=== PATIENT | female | born 1985 | race Caucasian/White ===

== ENCOUNTER 2017-01-24 17:16 | Inpatient (IN) | payer MEDICAID, OTHER ==
[~2017-01-24] VITALS: Ht 157.5 cm; Wt 46.8 kg
[~2017-01-24 17:16] MED LIST: ADDE10 PO; LEVO25TA9 PO; SERT100T12 PO; VITA1CAP PO
[2017-01-24 18:51] VITALS: BP 132/82
[2017-01-24] MEDS ORDERED: LORazepam 2 MG TABLET PO PRN (19:00)
[2017-01-24] MEDS ORDERED: ZOLPIDEM TARTRATE 10 MG TABLET PO PRN (19:00)
[2017-01-24] MEDS ORDERED: HALOPERIDOL 5 MG TABLET PO PRN (19:00)
[2017-01-24 20:23] VITALS: BP 128/73
[2017-01-24] MEDS ORDERED: INFLUENZA VIRUS VACCINE QVS 2016-17 (3YR+)/PF 60 MCG/0.5 ML SYRINGE IM ONE (20:45)
[2017-01-25 02:16] VITALS: BP 127/68
[2017-01-25] MEDS: LEVOTHYROXINE SODIUM 25 MCG TABLET PO SCH (06:21)
[2017-01-25] MEDS ORDERED: IBUPROFEN 400 MG TABLET PO PRN (07:30)
[2017-01-25] MEDS ORDERED: ACETAMINOPHEN 325 MG TABLET PO PRN (07:30)
[2017-01-25 08:59] VITALS: BP 113/91
[2017-01-25] MEDS: VITAMIN B COMPLEX ER TABLET PO SCH (12:44)
[2017-01-25 16:25] VITALS: BP 119/67
[2017-01-26 01:44] VITALS: BP 124/88
[2017-01-26] MEDS: LEVOTHYROXINE SODIUM 25 MCG TABLET PO SCH (06:26)
[2017-01-26] MEDS ORDERED: LEVOTHYROXINE SODIUM 25 MCG TABLET PO SCH (06:30)
[2017-01-26 08:42] VITALS: BP 116/74
[2017-01-26] MEDS: VITAMIN B COMPLEX ER TABLET PO SCH (08:43)
[2017-01-26] MEDS ORDERED: OLANZapine 5 MG TABLET PO SCH (09:00)
[2017-01-26 16:36] VITALS: BP 132/96
[2017-01-26] MEDS: OLANZapine 5 MG TABLET PO SCH (16:59)
[2017-01-27 02:07] VITALS: BP 126/71
[2017-01-27] MEDS: LEVOTHYROXINE SODIUM 25 MCG TABLET PO SCH (06:54)
[2017-01-27] MEDS: VITAMIN B COMPLEX ER TABLET PO SCH (09:00)
[2017-01-27] MEDS: OLANZapine 5 MG TABLET PO SCH (09:00)
[2017-01-27] MEDS: HALOPERIDOL 5 MG TABLET PO SCH (17:00)
[2017-01-27 18:25] VITALS: BP 131/75
[2017-01-28] MEDS: LEVOTHYROXINE SODIUM 25 MCG TABLET PO SCH (06:25)
[2017-01-28 08:25] VITALS: BP 124/91
[2017-01-28] MEDS: HALOPERIDOL 5 MG TABLET PO SCH ×2 (08:31→16:49)
[2017-01-28] MEDS: VITAMIN B COMPLEX ER TABLET PO SCH (08:31)
[2017-01-28 16:23] VITALS: BP 114/73
[2017-01-28] MEDS: BENZTROPINE MESYLATE 0.5 MG TABLET PO SCH (16:49)
[2017-01-29] MEDS: LEVOTHYROXINE SODIUM 25 MCG TABLET PO SCH (06:32)
[2017-01-29 08:40] VITALS: BP 131/77
[2017-01-29] MEDS: BENZTROPINE MESYLATE 0.5 MG TABLET PO SCH ×2 (08:40→17:00)
[2017-01-29] MEDS: VITAMIN B COMPLEX ER TABLET PO SCH (08:40)
[2017-01-29] MEDS: HALOPERIDOL 5 MG TABLET PO SCH ×2 (08:40→17:00)
[2017-01-29 17:50] VITALS: BP 115/78
[2017-01-30] MEDS: LEVOTHYROXINE SODIUM 25 MCG TABLET PO SCH (06:34)
[2017-01-30] MEDS: HALOPERIDOL 5 MG TABLET PO SCH ×2 (09:00→16:37)
[2017-01-30] MEDS: BENZTROPINE MESYLATE 0.5 MG TABLET PO SCH ×2 (09:00→16:37)
[2017-01-30] MEDS: VITAMIN B COMPLEX ER TABLET PO SCH (09:00)
[2017-01-30 09:21] VITALS: BP 107/65
[2017-01-30 16:15] VITALS: BP 109/66
[2017-01-31 05:03] VITALS: BP 112/71
[2017-01-31] MEDS: LEVOTHYROXINE SODIUM 25 MCG TABLET PO SCH (06:26)
[2017-01-31 08:24] VITALS: BP 103/61
[2017-01-31] MEDS: BENZTROPINE MESYLATE 0.5 MG TABLET PO SCH ×2 (08:52→17:00)
[2017-01-31] MEDS: HALOPERIDOL 5 MG TABLET PO SCH ×2 (08:52→17:00)
[2017-01-31] MEDS: VITAMIN B COMPLEX ER TABLET PO SCH (08:52)
[2017-01-31 16:12] VITALS: BP 121/79
[2017-02-01 00:55] VITALS: BP 112/68
[2017-02-01] MEDS: LEVOTHYROXINE SODIUM 25 MCG TABLET PO SCH (06:23)
[2017-02-01] MEDS: HALOPERIDOL 5 MG TABLET PO SCH ×2 (08:35→17:00)
[2017-02-01] MEDS: VITAMIN B COMPLEX ER TABLET PO SCH (08:35)
[2017-02-01] MEDS: BENZTROPINE MESYLATE 0.5 MG TABLET PO SCH ×2 (08:35→17:00)
[2017-02-01 08:47] LABS: BASOPHILS % (AUTO) 0.4 % (0.0-2.0); EOSINOPHILS % (AUTO) 0.9 % (1.0-6.0); HEMATOCRIT 49.2 % (36-46); HEMOGLOBIN 16.1 g/dL (12.0-16.0); LYMPHOCYTES # (AUTO) 2.5 K/uL (1.0-4.8); LYMPHOCYTES % (AUTO) 23.3 % (22.0-44.0); MEAN CORPUSCULAR HEMOGLOBIN 28.8 pg (26.0-34.0); MEAN CORPUSCULAR HGB CONC 32.7 G/dL (31.0-37.0); MEAN CORPUSCULAR VOLUME 88 fL (80-100); MONOCYTES # (AUTO) 0.4 K/uL (0.1-1.0); MONOCYTES % (AUTO) 3.6 % (2.0-9.0); NEUTROPHILS # (AUTO) 7.6 K/uL (1.8-7.7); NEUTROPHILS % (AUTO) 71.8 % (40.0-70.0); PLATELET COUNT (AUTO) 251 K/uL (150-450); RED BLOOD CELL COUNT(AUTO) 5.59 MIL/uL (4.00-5.20); RED CELL DISTRIBUTION WIDTH 13.6 % (11.5-14.5)
[2017-02-01 08:49] VITALS: BP 110/80
[2017-02-01 08:50] LABS: WHITE BLOOD COUNT (AUTO) 12.7 K/uL (4.5-11.0)
[2017-02-01 16:02] VITALS: BP 111/75
[2017-02-01] MEDS: RisperiDONE 1 MG TABLET PO SCH (21:48)
[2017-02-02 05:49] VITALS: BP 121/74
[2017-02-02] MEDS: LEVOTHYROXINE SODIUM 25 MCG TABLET PO SCH (06:30)
[2017-02-02 08:10] VITALS: BP 123/70
[2017-02-02] MEDS: BENZTROPINE MESYLATE 0.5 MG TABLET PO SCH ×2 (09:00→17:00)
[2017-02-02] MEDS: VITAMIN B COMPLEX ER TABLET PO SCH (09:31)
[2017-02-02] MEDS: RisperiDONE 1 MG TABLET PO SCH ×2 (09:31→16:59)
[2017-02-02 16:18] VITALS: BP 111/75
[2017-02-02] MEDS: DOCUSATE SODIUM 100 MG CAPSULE PO SCH (20:49)
[2017-02-03 04:52] VITALS: BP 121/74
[2017-02-03] MEDS: LEVOTHYROXINE SODIUM 25 MCG TABLET PO SCH (06:22)
[2017-02-03] MEDS ORDERED: HALOPERIDOL LACTATE 5 MG/ML VIAL IM PRN (08:30)
[2017-02-03 09:01] VITALS: BP 103/68
[2017-02-03 09:16] LABS: HEMOGLOBIN A1C 5.5 % (4.5-6.2)
[2017-02-03 09:19] LABS: ALANINE AMINOTRANSFERASE 16 U/L (12-78); ALBUMIN 3.3 g/dL (3.4-5.0); ANION GAP 11 mmol/L (8-16); ASPARTATE AMINOTRANSFERASE 15 U/L (15-37); BILIRUBIN,TOTAL 0.3 mg/dL (0.1-1.0); CALCIUM, TOTAL 8.4 mg/dL (8.8-10.5); CARBON DIOXIDE 27 mmol/L (22-29); CHLORIDE 106 mmol/L (98-107); CHOL/HDL RATIO 3.8 (3.9-5.7); CREATININE 0.66 mg/dL (0.60-1.30); GLOMERULAR FILTR. RATE CALC > 60 mL/min (>60); POTASSIUM 3.8 mmol/L (3.5-5.1); SODIUM SERUM 144 mmol/L (136-145); THYROID STIMULATING HORMONE 0.78 uIU/mL (0.36-3.74); TOTAL PROTEIN, SERUM 6.9 g/dL (6.4-8.2); UREA NITROGEN, BLOOD 7 mg/dL (7-18)
[2017-02-03] MEDS: RisperiDONE 1 MG TABLET PO SCH (09:31)
[2017-02-03] MEDS: BENZTROPINE MESYLATE 0.5 MG TABLET PO SCH ×2 (09:31→17:00)
[2017-02-03] MEDS: VITAMIN B COMPLEX ER TABLET PO SCH (09:31)
[2017-02-03 09:41] LABS: APPEARANCE,URINE CLOUDY (CLEAR); GLUCOSE, URINE (UA) NEGATIVE (NEGATIVE); KETONES,URINE NEGATIVE (NEGATIVE); LEUKOCYTE ESTERASE ,URINE NEGATIVE (NEGATIVE); OCCULT BLOOD,URINE NEGATIVE (NEGATIVE); PH,URINE 6.5 (5.0-8.0); PROTEIN,URINE NEGATIVE (NEGATIVE)
[2017-02-03 09:46] LABS: ADD UA MICROSCOPIC YES
[2017-02-03 09:56] LABS: RBC,URINE None Seen /HPF (0-2); SQUAMOUS EPITHELIAL CELL,UR Few /LPF (None Seen); WBC,URINE None Seen /HPF (0-5)
[2017-02-03 16:18] VITALS: BP 104/65
[2017-02-03] MEDS: RisperiDONE 3 MG TABLET PO SCH (21:02)
[2017-02-03] MEDS: DOCUSATE SODIUM 100 MG CAPSULE PO SCH (21:02)
[2017-02-04] MEDS: LEVOTHYROXINE SODIUM 25 MCG TABLET PO SCH (06:24)
[2017-02-04 06:31] VITALS: BP 109/62
[2017-02-04] MEDS: VITAMIN B COMPLEX ER TABLET PO SCH (08:46)
[2017-02-04] MEDS: RisperiDONE 2 MG TABLET PO SCH (08:47)
[2017-02-04] MEDS: BENZTROPINE MESYLATE 0.5 MG TABLET PO SCH ×2 (08:47→17:00)
[2017-02-04 09:15] VITALS: BP 106/64
[2017-02-04 16:14] VITALS: BP 123/73
[2017-02-04] MEDS: RisperiDONE 3 MG TABLET PO SCH (20:36)
[2017-02-04] MEDS: DOCUSATE SODIUM 100 MG CAPSULE PO SCH (20:36)
[2017-02-05 04:35] VITALS: BP 122/76
[2017-02-05] MEDS: LEVOTHYROXINE SODIUM 25 MCG TABLET PO SCH (06:50)
[2017-02-05] MEDS: VITAMIN B COMPLEX ER TABLET PO SCH (08:10)
[2017-02-05] MEDS: RisperiDONE 2 MG TABLET PO SCH (08:10)
[2017-02-05] MEDS: BENZTROPINE MESYLATE 0.5 MG TABLET PO SCH (08:13)
[2017-02-05 08:52] VITALS: BP 105/65
[2017-02-05] MEDS ORDERED: RISP3 PO (11:48)
[2017-02-05] MEDS ORDERED: RISP2 PO (11:48)
[2017-02-05] MEDS ORDERED: DSS100 PO (11:49)
[2017-02-05] MEDS ORDERED: BENZ0.5T6 PO (11:50)
== END 2017-02-05 13:45 | disposition home or self-care (01) | DRG 750 ==
LOC: EDSTATUS 18:07 → B3A 19:04
PROVIDERS: ADMIT Psychiatry & Neurology Psychiatry; ATTEND Psychiatry & Neurology Psychiatry
DX: F20.0 Paranoid schizophrenia (principal); Z91.19 Patient's noncompliance with other medical treatment and regimen; I10 Essential (primary) hypertension; F90.9 Attention-deficit hyperactivity disorder, unspecified type; E03.9 Hypothyroidism, unspecified; F99 Mental disorder, not otherwise specified; R00.0 Tachycardia, unspecified; Z28.21 Immunization not carried out because of patient refusal; Z91.011 Allergy to milk products; Z91.010 Allergy to peanuts; Z91.018 Allergy to other foods
CPT/HCPCS: 80307; 83036; 84436; 84439; 84443; 90471

== ENCOUNTER 2017-08-14 23:28 | Inpatient (IN) | payer MEDICAID ==
[~2017-08-14] VITALS: Ht 160 cm; Wt 54.9 kg
[~2017-08-14 23:28] MED LIST changes: -ADDE10 PO; +BENZ0.5T6 PO; +DSS100 PO; +RISP2 PO; +RISP3 PO; -SERT100T12 PO
[2017-08-15] MEDS ORDERED: QUEtiapine FUMARATE 100 MG TABLET PO PRN (00:30)
[2017-08-15] MEDS ORDERED: LORazepam 1 MG TABLET PO PRN (00:30)
[2017-08-15] MEDS ORDERED: ZOLPIDEM TARTRATE 10 MG TABLET PO PRN (00:30)
[2017-08-15 01:37] VITALS: BP 115/72
[2017-08-15] MEDS ORDERED: INFLUENZA VIRUS VACCINE QVS 2017-18 (3YR+)/PF 60 MCG/0.5 ML SYRINGE IM ONE (03:00)
[2017-08-15 08:40] VITALS: BP 108/68
[2017-08-15 16:29] VITALS: BP 106/69
[2017-08-15] MEDS: OLANZapine 5 MG TABLET PO SCH (20:54)
[2017-08-16 01:44] VITALS: BP 105/67
[2017-08-16 08:22] VITALS: BP 102/62
[2017-08-16] MEDS ORDERED: NICOTINE 21 MG/24 HOUR PATCH TD SCH (09:00)
[2017-08-16] MEDS: NICOTINE 14 MG/24 HOUR PATCH TD SCH (09:40)
[2017-08-16 16:00] VITALS: BP 112/66
[2017-08-16] MEDS: OLANZapine 5 MG TABLET PO SCH (20:31)
[2017-08-17 01:18] VITALS: BP 100/62
[2017-08-17 08:30] LABS: BASOPHILS # (AUTO) 0.02 K/uL (0.00-0.20); BASOPHILS % (AUTO) 0.4 % (0.0-2.0); EOSINOPHILS # (AUTO) 0.09 K/uL (0.00-0.70); EOSINOPHILS % (AUTO) 1.46 % (1.0-6.0); HEMATOCRIT 39.6 % (36-46); HEMOGLOBIN 13.5 g/dL (12.0-16.0); LYMPHOCYTES # (AUTO) 2.2 K/uL (1.0-4.8); LYMPHOCYTES % (AUTO) 35.8 % (22.0-44.0); MEAN CORPUSCULAR HEMOGLOBIN 30.5 pg (26.0-34.0); MEAN CORPUSCULAR HGB CONC 34.1 G/dL (31.0-37.0); MEAN CORPUSCULAR VOLUME 89 fL (80-100); MONOCYTES # (AUTO) 0.3 K/uL (0.1-1.0); MONOCYTES % (AUTO) 5.4 % (2.0-9.0); NEUTROPHILS # (AUTO) 3.5 K/uL (1.8-7.7); PLATELET COUNT (AUTO) 164 K/uL (150-450); RED BLOOD CELL COUNT(AUTO) 4.43 MIL/uL (4.00-5.20); RED CELL DISTRIBUTION WIDTH 13.7 % (11.5-14.5); WHITE BLOOD COUNT (AUTO) 6.1 K/uL (4.5-11.0)
[2017-08-17] MEDS: NICOTINE 14 MG/24 HOUR PATCH TD SCH (08:43)
[2017-08-17 08:58] LABS: HEMOGLOBIN A1C 4.7 % (4.5-6.2)
[2017-08-17 09:07] VITALS: BP 102/59
[2017-08-17 10:17] LABS: ALANINE AMINOTRANSFERASE 14 U/L (12-78); ALBUMIN 3.6 g/dL (3.4-5.0); ANION GAP 9 mmol/L (8-16); ASPARTATE AMINOTRANSFERASE 13 U/L (15-37); BILIRUBIN,TOTAL 0.4 mg/dL (0.1-1.0); CALCIUM, TOTAL 8.6 mg/dL (8.8-10.5); CARBON DIOXIDE 26 mmol/L (22-29); CHLORIDE 106 mmol/L (98-107); CHOL/HDL RATIO 2.6 (3.9-5.7); CREATININE 0.55 mg/dL (0.60-1.30); GLOMERULAR FILTR. RATE CALC > 60 mL/min (>60); SODIUM SERUM 141 mmol/L (136-145); THYROID STIMULATING HORMONE 0.92 uIU/mL (0.36-3.74); TOTAL PROTEIN, SERUM 6.2 g/dL (6.4-8.2); UREA NITROGEN, BLOOD 9 mg/dL (7-18)
[2017-08-17] MEDS: ACETAMINOPHEN 325 MG TABLET PO PRN (13:42)
[2017-08-17 16:28] VITALS: BP 111/68
[2017-08-17] MEDS: OLANZapine 5 MG TABLET PO SCH (20:28)
[2017-08-18 05:32] VITALS: BP 103/64
[2017-08-18] MEDS: NICOTINE 14 MG/24 HOUR PATCH TD SCH (08:43)
[2017-08-18 09:07] VITALS: BP 100/66
[2017-08-18 10:16] VITALS: BP 106/71
[2017-08-18] MEDS: ACETAMINOPHEN 325 MG TABLET PO PRN (10:16)
[2017-08-18 16:23] VITALS: BP 104/62
[2017-08-18] MEDS: OLANZapine 5 MG TABLET PO SCH (20:07)
[2017-08-19 00:07] VITALS: BP 106/63
[2017-08-19 08:29] VITALS: BP 107/65
[2017-08-19] MEDS: NICOTINE 14 MG/24 HOUR PATCH TD SCH ×2 (08:40→09:00)
[2017-08-19 11:50] VITALS: BP 110/68
[2017-08-19] MEDS: ACETAMINOPHEN 325 MG TABLET PO PRN ×2 (11:51→20:12)
[2017-08-19 16:17] VITALS: BP 124/71
[2017-08-19] MEDS: OLANZapine 5 MG TABLET PO SCH (20:12)
[2017-08-20 00:09] VITALS: BP 110/63
[2017-08-20 08:28] VITALS: BP 101/62
[2017-08-20] MEDS: NICOTINE 14 MG/24 HOUR PATCH TD SCH (08:54)
[2017-08-20] MEDS: ACETAMINOPHEN 325 MG TABLET PO PRN ×2 (10:03→20:08)
[2017-08-20 16:08] VITALS: BP 120/76
[2017-08-20] MEDS: OLANZapine 5 MG TABLET PO SCH (20:02)
[2017-08-20 20:08] VITALS: BP 116/78
[2017-08-21 01:04] VITALS: BP 100/61
[2017-08-21] MEDS: NICOTINE 14 MG/24 HOUR PATCH TD SCH (09:00)
[2017-08-21 10:23] VITALS: BP 114/72
[2017-08-21 17:42] VITALS: BP 100/60
[2017-08-21] MEDS: OLANZapine 5 MG TABLET PO SCH (20:49)
[2017-08-22 00:16] VITALS: BP 107/63
[2017-08-22] MEDS: NICOTINE 14 MG/24 HOUR PATCH TD SCH (09:00)
[2017-08-22 11:09] VITALS: BP 100/68
[2017-08-22 16:40] VITALS: BP 116/66
[2017-08-22 17:26] VITALS: BP 115/75
[2017-08-22] MEDS: OLANZapine 5 MG TABLET PO SCH (20:23)
[2017-08-23 06:45] VITALS: BP 110/65
[2017-08-23 08:38] VITALS: BP 121/66
[2017-08-23] MEDS ORDERED: OLAN5TAB2 PO (11:12)
== END 2017-08-23 13:00 | disposition home or self-care (01) | DRG 753 ==
LOC: B2S 08-15 01:00 → B3A 08-22 17:29
PROVIDERS: ADMIT Psychiatry & Neurology Psychiatry; ATTEND Psychiatry & Neurology Child & Adolescent Psychiatry
DX: F31.31 Bipolar disorder, current episode depressed, mild (principal); F20.0 Paranoid schizophrenia; E03.9 Hypothyroidism, unspecified; K21.9 Gastro-esophageal reflux disease without esophagitis; Z28.21 Immunization not carried out because of patient refusal; R03.0 Elevated blood-pressure reading, without diagnosis of hypertension; Z91.011 Allergy to milk products; Z91.018 Allergy to other foods; Z91.048 Other nonmedicinal substance allergy status; F90.9 Attention-deficit hyperactivity disorder, unspecified type; Z53.20 Procedure and treatment not carried out because of patient's decision for unspecified reasons; Z79.899 Other long term (current) drug therapy
CPT/HCPCS: 83036; 84436; 84439; 84443; 90471